=== PATIENT | female | born 1950 | race Two or more races ===

== ENCOUNTER 2020-09-14 10:00 | Inpatient (IN) | payer OTHER ==
[~2020-09-14] VITALS: Ht 157.5 cm; Wt 52.2 kg
[2020-09-14] MEDS ORDERED: XARELTO20 MG PO (14:25)
[2020-09-14] MEDS ORDERED: MULTAQ400 MG PO (14:25)
[2020-09-14] MEDS ORDERED: DRAMAMINE LESS25 MG PO (14:26)
[2020-09-14] MEDS ORDERED: CARDIZEM LA300 MG PO (14:26)
[2020-09-14] MEDS ORDERED: CLONAZEPAM0.5 MG PO (14:27)
[2020-09-14] MEDS ORDERED: RESTORIL30 M1 PO (14:27)
[2020-09-14] MEDS ORDERED: SINGULAIR 10MG10 MG PO (14:27)
[2020-09-21] MEDS ORDERED: BACLOFEN10 MG (08:05)
[2020-09-21] MEDS ORDERED: AVENTYL HCL25 MG (08:05)
[2020-09-21] MEDS ORDERED: 8HR ARTHRITIS650 M1 (08:05)
[2020-09-24] MEDS ORDERED: ULTRACET PO (10:53)
[2020-09-24] MEDS ORDERED: INTESTINEX680 M1 PO (10:53)
[2020-09-24] MEDS ORDERED: LEVSIN/SL0.125 MG SL (10:54)
== END 2020-09-24 14:28 | disposition home or self-care (01) | DRG 331 ==
LOC: SURH 09-21 06:00 → O/R 09-21 06:00 → SURH 09-21 07:00 → SURG 09-21 13:17 → SURH 09-21 14:49
PROVIDERS: Urology; ADMIT Surgery; ATTEND Surgery
PROC: 4A12X4Z Monitoring of Cardiac Electrical Activity, External Approach (ICD-10-PCS; 2020-09-21)
PROC: 3E0F7GC Introduction of Other Therapeutic Substance into Respiratory Tract, Via Natural or Artificial Opening (ICD-10-PCS; 2020-09-21)
PROC: 0DTN4ZZ Resection of Sigmoid Colon, Percutaneous Endoscopic Approach (ICD-10-PCS; principal; 2020-09-21 07:00)
PROC: 0DJD8ZZ Inspection of Lower Intestinal Tract, Via Natural or Artificial Opening Endoscopic (ICD-10-PCS; 2020-09-21 07:00)
DX: K57.20 Diverticulitis of large intestine with perforation and abscess without bleeding (principal); Z20.828 Contact with and (suspected) exposure to other viral communicable diseases; I48.0 Paroxysmal atrial fibrillation; J45.20 Mild intermittent asthma, uncomplicated; Z85.3 Personal history of malignant neoplasm of breast; N18.2 Chronic kidney disease, stage 2 (mild); I13.10 Hypertensive heart and chronic kidney disease without heart failure, with stage 1 through stage 4 chronic kidney disease, or unspecified chronic kidney disease